=== PATIENT | female | born 2000 | race African-American/Black ===

== ENCOUNTER 2024-07-02 16:55 | Emergency (ER) | payer OTHER ==
[~2024-07-02] VITALS: Ht 177.8 cm; Wt 108.9 kg
[2024-07-02 17:00] VITALS: O2SAT 98
[2024-07-02 17:08] VITALS: BP 130/86; PULSE 78; RESP 15; TEMP 36.9; O2SAT 100
[2024-07-02 17:33] LABS: BASOPHILS % 0.8 % (0.0-2.0); LYMPHOCYTES % 21.7 % (20.0-50.0); MEAN CORPUSCULAR HEMOGLOBIN 30.1 pg (28.0-32.0); MEAN CORPUSCULAR HGB CONC 33.3 g/dL (31.0-37.0); MEAN CORPUSCULAR VOLUME 90.3 fL (81.0-99.0); MEAN PLATELET VOLUME 7.5 fl (7.4-10.4); MONOCYTES % 7.7 % (2.0-8.0); NEUTROPHILS % 68.8 % (40.0-76.0); PLATELET 408 x1000/uL (130-400); RED BLOOD CELL COUNT 4.32 mill/uL (4.2-5.4); RED CELL DISTRIBUTION WIDTH 14.1 % (11.6-14.6); WHITE BLOOD COUNT 9.7 x1000/uL (4.5-11.0)
[2024-07-02 17:42] LABS: CHLORIDE 107 mEq/L (98-107); POTASSIUM 3.9 mEq/L (3.5-5.1); SODIUM 140 mEq/L (136-145)
[2024-07-02 17:43] LABS: CARBON DIOXIDE 27 mEq/L (21-32)
[2024-07-02 17:44] LABS: CALCIUM 9.4 mg/dL (8.7-10.4)
[2024-07-02 17:48] LABS: CREATININE 0.7 mg/dL (0.6-1.0); GLUCOSE 103 mg/dL (70-105); UREA NITROGEN BLOOD 8 mg/dL (9-23)
[2024-07-02 17:49] LABS: B-HCG QUANTITATIVE 313 mIU/mL (<6)
== END 2024-07-02 20:10 | disposition home or self-care (01) ==
LOC: ER 16:55
DX: O03.4 Incomplete spontaneous abortion without complication (principal); N89.8 Other specified noninflammatory disorders of vagina; Z3A.01 Less than 8 weeks gestation of pregnancy
CPT/HCPCS: 36415; 76801; 80048; 84702; 85025; 86850; 86900; 99284